=== PATIENT | male | born 1995 | race Caucasian/White ===

== ENCOUNTER 2020-09-28 20:06 | Emergency (ER) | payer OTHER ==
[~2020-09-28 20:06] MED LIST: BENTYL10 MG PO; MEDROL 4MG DOSEP4 MG PO; ONDANSETRON HCL4 MG PO; ONDANSETRON ODT4 MG SL; PREDNISONE 20MG20 MG PO; TESSALON PERLE100 MG PO; VENTOLIN HFA IN18 GM INH; ZPAK PO
[2020-09-28 20:34] LABS: BASOPHIL 1.1 % (0-2); EOSINOPHIL 1.2 % (0-5); HCT 38.4 % (42.0-52.0); HGB 13.2 g/dl (13.2-18.0); LYMPHOCYTE 31.7 % (15-48); MCH 29.9 pg (25.0-31.0); MCHC 34.4 g/dL (32.0-36.0); MCV 86.9 fL (78.0-100.0); MONOCYTE 8.1 % (0-12); MPV 10.7 fL (6.0-9.5); NEUTROPHIL 57.8 % (41-80); NRBC 0; PLT 223 K/uL (150-400); RBC 4.42 M/uL (4.70-6.00); RDW 12.7 % (11.5-14.0); WBC 7.5 K/uL (4.0-10.5)
[2020-09-28 20:46] LABS: ALBUMIN 3.8 g/dL (3.4-5.0); BILIRUBIN - TOTAL 0.2 mg/dL (0.2-1.0); BUN/CREAT RATIO (CALC) 5.6 RATIO; CREATININE 1.07 mg/dL (0.67-1.17); GLOBULIN (CALCULATION) 3.1 g/dL; POTASSIUM 3.7 mmol/L (3.5-5.1); TOTAL PROTEIN 6.9 g/dL (6.4-8.2)
== END 2020-09-28 22:30 | disposition home or self-care (01) ==
LOC: FER 20:06
PROVIDERS: Emergency Medicine
DX: R07.9 Chest pain, unspecified (principal); R51.9 Headache, unspecified; J45.909 Unspecified asthma, uncomplicated; F17.210 Nicotine dependence, cigarettes, uncomplicated; Z86.19 Personal history of other infectious and parasitic diseases
CPT/HCPCS: 36415; 80053; 84484; 85025; 85379; 93005

== ENCOUNTER 2021-01-12 18:00 | Emergency (ER) | payer OTHER | END 2021-01-12 19:28 | disposition home or self-care (01) | LOC: FER 18:00 | DX: S93.401A Sprain of unspecified ligament of right ankle, initial encounter (principal); W23.0XXA Caught, crushed, jammed, or pinched between moving objects, initial encounter; Y92.89 Other specified places as the place of occurrence of the external cause; Y99.0 Civilian activity done for income or pay | CPT/HCPCS: 73630 ==

== ENCOUNTER 2022-03-01 20:39 | Emergency (ER) | payer OTHER ==
[2022-03-01 21:50] LABS: CORONAVIRUS 2019 SARS-COV-2 NEGATIVE (NEGATIVE); INFLUENZA A NAA NEGATIVE (NEGATIVE)
== END 2022-03-01 21:30 | disposition left against medical advice (07) ==
LOC: FER 20:39
PROVIDERS: Nurse Practitioner Family
DX: R07.9 Chest pain, unspecified (principal); Z53.29 Procedure and treatment not carried out because of patient's decision for other reasons; Z20.822 Contact with and (suspected) exposure to COVID-19; Z28.310 Unvaccinated for COVID-19
CPT/HCPCS: 93005; U0002

== ENCOUNTER 2022-05-15 11:00 | Emergency (ER) | payer OTHER ==
[2022-05-15 13:32] LABS: BASOPHIL 1.1 % (0-2); EOSINOPHIL 0.9 % (0-5); HGB 13.2 g/dl (13.2-18.0); LYMPHOCYTE 26.7 % (15-48); MCH 29.3 pg (25.0-31.0); MCHC 34.7 g/dL (32.0-36.0); MCV 84.4 fL (78.0-100.0); MONOCYTE 7.9 % (0-12); MPV 10.6 fL (6.0-9.5); NEUTROPHIL 63.2 % (41-80); NRBC 0; PLT 208 K/uL (150-400); RDW 12.5 % (11.5-14.0); WBC 6.4 K/uL (4.0-10.5)
[2022-05-15 13:45] LABS: ALBUMIN 3.7 g/dL (3.4-5.0); BILIRUBIN - TOTAL 0.2 mg/dL (0.2-1.0); BUN/CREAT RATIO (CALC) 17.2 RATIO; CREATININE 0.93 mg/dL (0.67-1.17); POTASSIUM 4.1 mmol/L (3.5-5.1); TOTAL PROTEIN 6.7 g/dL (6.4-8.2)
[2022-05-15 14:02] LABS: BILIRUBIN NEGATIVE (NEGATIVE); BLOOD NEGATIVE Ery/uL (NEGATIVE); CLARITY CLEAR (CLEAR); COLOR YELLOW (YELLOW); GLUCOSE (U) NORMAL (NORMAL); LEUKOCYTES NEGATIVE Leu/uL (NEGATIVE); NITRITE NEGATIVE (NEGATIVE); PROTEIN NEGATIVE (NEGATIVE); UROBILINOGEN 0.2 mg/dL (0.2-1.0)
[2022-05-16 22:10] LABS: CHLAMYDIA TRACHOMATIS, NAA Negative (Negative); NEISSERIA GONORRHOEAE, NAA Negative (Negative)
== END 2022-05-15 14:50 | disposition home or self-care (01) ==
LOC: FER 11:00
PROVIDERS: Nurse Practitioner Family
DX: R30.0 Dysuria (principal); J45.909 Unspecified asthma, uncomplicated; Z28.310 Unvaccinated for COVID-19
CPT/HCPCS: 36415; 80053; 81003; 85025; 87491; 87591; 93005; J0696

== ENCOUNTER 2022-06-11 01:10 | Emergency (ER) | payer OTHER ==
[2022-06-11 02:03] LABS: BASOPHIL 0.6 % (0-2); HCT 37.8 % (42.0-52.0); HGB 13.4 g/dl (13.2-18.0); LYMPHOCYTE 21.8 % (15-48); MCH 29.6 pg (25.0-31.0); MCHC 35.4 g/dL (32.0-36.0); MCV 83.4 fL (78.0-100.0); MONOCYTE 5.1 % (0-12); MPV 10.4 fL (6.0-9.5); NEUTROPHIL 71.3 % (41-80); NRBC 0; PLT 221 K/uL (150-400); RBC 4.53 M/uL (4.70-6.00); RDW 12.7 % (11.5-14.0); WBC 11.6 K/uL (4.0-10.5)
[2022-06-11 02:23] LABS: ALBUMIN 3.6 g/dL (3.4-5.0); BILIRUBIN - TOTAL 0.3 mg/dL (0.2-1.0); BUN/CREAT RATIO (CALC) 12.9 RATIO; CREATININE 0.93 mg/dL (0.67-1.17); GLOBULIN (CALCULATION) 3.1 g/dL; POTASSIUM 3.5 mmol/L (3.5-5.1); TOTAL PROTEIN 6.7 g/dL (6.4-8.2)
[2022-06-11 02:41] LABS: CORONAVIRUS 2019 SARS-COV-2 NEGATIVE (NEGATIVE); INFLUENZA A NAA NEGATIVE (NEGATIVE)
[2022-06-11] MEDS ORDERED: AMOXICILLIN500 MG PO (03:56)
== END 2022-06-11 04:13 | disposition home or self-care (01) ==
LOC: FER 01:10
PROVIDERS: Emergency Medicine
DX: R07.89 Other chest pain (principal); J45.909 Unspecified asthma, uncomplicated; Z20.822 Contact with and (suspected) exposure to COVID-19; Z28.310 Unvaccinated for COVID-19
CPT/HCPCS: 36415; 71045; 80053; 84484; 85025; 93005; U0002

== ENCOUNTER 2022-06-27 06:43 | Emergency (ER) | payer OTHER ==
[~2022-06-27 06:43] MED LIST changes: +AMOXICILLIN500 MG PO
[2022-06-27 08:08] LABS: CORONAVIRUS 2019 SARS-COV-2 NEGATIVE (NEGATIVE); INFLUENZA A NAA NEGATIVE (NEGATIVE)
[2022-06-27] MEDS ORDERED: ONDANSETRON ODT4 MG PO (09:28)
== END 2022-06-27 09:44 | disposition home or self-care (01) ==
LOC: FER 06:43
PROVIDERS: Emergency Medicine
DX: B34.9 Viral infection, unspecified (principal); J45.909 Unspecified asthma, uncomplicated; F17.200 Nicotine dependence, unspecified, uncomplicated; Z20.822 Contact with and (suspected) exposure to COVID-19
CPT/HCPCS: 71045; 87880; 93005; J1885; J2405; J7030; U0002